=== PATIENT | female | born 1955 | race Caucasian/White ===

== ENCOUNTER 2018-08-15 20:40 | Emergency (ER) | payer OTHER ==
[~2018-08-15] VITALS: Ht 165.1 cm; Wt 81.7 kg
[~2018-08-15 20:40] MED LIST: NAPROSYN500 MG PO; NOHOMEMEDICATIONS
[2018-08-15] MEDS ORDERED: AVAPRO75 MG PO (20:53)
[2018-08-15] MEDS ORDERED: NORCO 5-325 TA1 EAC1 PO (21:25)
[2018-08-15 22:04] VITALS: BP 137/86
== END 2018-08-15 22:07 | disposition home or self-care (01) ==
LOC: M.ERS 20:40
DX: S52.612A Displaced fracture of left ulna styloid process, initial encounter for closed fracture (principal); Z90.710 Acquired absence of both cervix and uterus; W18.39XA Other fall on same level, initial encounter; Y93.89 Activity, other specified; Y92.89 Other specified places as the place of occurrence of the external cause; Y99.8 Other external cause status